=== PATIENT | male | born 1965 | race Caucasian/White ===

== ENCOUNTER → 2019-08-26 | Outpatient (CLI) | payer OTHER ==
--- NOTE | 2019-08-27 07:54 | RAD ---
ABDOMEN COMPLETE History: Abdominal pain Comparison: None. Technique: Sonographic examination of the abdomen was performed and multiple grayscale and color Doppler static images were obtained. Findings: Liver is visualized and increased echogenicity. The liver measures 20.1 cm. Portal flow is patent Common bile duct is normal in caliber, measuring 5.6 mm in diameter. No cholelithiasis. Small gallbladder sludge. No gallbladder wall thickening or pericholecystic fluid. Visualized pancreas is not well seen due to overlying bowel gas. The right kidney is normal in echotexture and measures 13.7 x 6.2 x 5.7 cm. Right renal cyst measures 3.8 x 3.3 cm. No hydronephrosis. The left kidney is normal in echotexture and measures 13.5 x 5.1 x 6.3 cm. No hydronephrosis. The spleen measures 10.2 cm. IVC and aorta not well seen due to overlying bowel gas. IMPRESSION: 1. Hepatomegaly with increased echotexture, may indicate steatosis. 2. Gallbladder sludge. 3. Right renal cyst. Electronically signed by: Mao Oliver DO (08/27/2019 7:51 AM) [facility]
== END | disposition home or self-care (01) ==
LOC: US 08:52
PROVIDERS: ATTEND Family Medicine
DX: N28.1 Cyst of kidney, acquired (principal); R16.0 Hepatomegaly, not elsewhere classified
CPT/HCPCS: 76700